=== PATIENT | male | born 1975 | race Caucasian/White ===

== ENCOUNTER 2021-10-28 12:15 | Outpatient (CLI) | payer MEDICAID ==
[2021-10-28 15:38] LABS: Mean Corpuscular HGB CONC 34.1 g/dL (32.0-36.0); Mean Corpuscular Hemoglobin 34.7 pg (27.0-33.0); Mean Corpuscular Volume 101.9 fl (81.2-95.1); Mean Platelet Volume 10.8 fl (7.4-10.4); Platelet Count 157 10x3/uL (150-450); RBC Distribution Width 13.2 % (11.5-14.5); Red Blood Cell (RBC) Count 4.32 10x6/uL (4.32-5.72); White Blood Cell (WBC) Count 7.7 10x3/uL (3.5-10.5)
[2021-10-28 15:46] LABS: Anion Gap 15 mmol/L (10-20); BUN (Urea Nitrogen) 7 mg/dL (8.9-20.6); CRP (Inflammatory) Less than 0.50 mg/dL (= or < 0.5); Calc. Creatinine Clearance 0 mL/min (70-130); Calcium 9.3 mg/dL (7.8-10.44); Carbon Dioxide 26 mmol/L (22-29); Chloride 102 mmol/L (98-107); Glucose 114 mg/dL (70-105); Sodium 139 mmol/L (136-145)
[2021-10-28 23:48] LABS: SARS-CoV-2 PCR by NAA Not Detected (NotDetected)
== END 2021-10-28 12:16 | disposition home or self-care (01) ==
LOC: CSHLAB 12:15
PROVIDERS: ATTEND Orthopaedic Surgery
DX: Z01.818 Encounter for other preprocedural examination (principal); Z20.822 Contact with and (suspected) exposure to COVID-19; L02.416 Cutaneous abscess of left lower limb; T85.79XA Infection and inflammatory reaction due to other internal prosthetic devices, implants and grafts, initial encounter
CPT/HCPCS: 80048; 85027; 86140; 93005; 93010; U0003; U0005

== ENCOUNTER 2021-11-02 06:46 | Day surgery (SDC) | payer MEDICAID ==
[2021-10-31 12:24] VITALS: BMI 32.1
[2021-11-02] MEDS ORDERED: Lidocaine 1% MPF 2 ML VIAL ONE (06:59)
[2021-11-02] MEDS ORDERED: ceFAZolin 2 GM/Dextrose 50 ML IVPB ONE (07:10)
[2021-11-02] MEDS ORDERED: Fentanyl 100 MCG/2 ML VIAL ONE (07:18)
[2021-11-02] MEDS ORDERED: Midazolam HCl 2 mg/2 ml Vial ONE (07:18)
[2021-11-02] MEDS ORDERED: PROPOFOL 20 ML ONE (07:18)
[2021-11-02] MEDS ORDERED: Lidocaine 1% PF 5 ML VIAL ONE (07:42)
[2021-11-02] MEDS ORDERED: Ondansetron PF 4 MG/2 ML Vial ONE (07:56)
[2021-11-02] MEDS ORDERED: Dexamethasone 4 mg/ml Vial ONE (07:56)
[2021-11-02] MEDS ORDERED: Ketorolac Tromethamine 30 MG/ML VIAL ONE (08:59)
== END 2021-11-02 10:00 | disposition home or self-care (01) ==
LOC: CSHSDC 06:46
PROVIDERS: ATTEND Orthopaedic Surgery
DX: T85.79XA Infection and inflammatory reaction due to other internal prosthetic devices, implants and grafts, initial encounter (principal); L02.416 Cutaneous abscess of left lower limb; F41.9 Anxiety disorder, unspecified; Z79.899 Other long term (current) drug therapy
CPT/HCPCS: 87070; 87077; 87186; 87205; J0690; J1100; J1885; J2250; J2405; J2704; J3010